=== PATIENT | female | born 1970 | race Caucasian/White ===

== ENCOUNTER 2016-10-14 18:05 | Inpatient (IN) | payer BC, MEDICARE ==
--- NOTE | ~2016-10-14 | HP ---
History And Physical [place] [id number] [facility] [place]. [address] NAME: JEANA LARIOS : 66 STATUS : ADM IN [facility]#: [id number] AGE: 45 ADM/REG DATE : 10/14/16 MR#: [id number] REPORT SERV DATE: 10/15/16 DICTATED BY: LUPIS METZ DATE: 10/15/16 REPORT STATUS : Draft TRANSCRIBED BY: MODCammy DATE: 10/15/16 DATE OF ADMISSION: 10/14/2016 ADDENDUM: The patient with some mild worsening tongue thickening. Dr. Kelly of Critical Care called and consulted, came to evaluate the patient, and will transfer the patient over to ICU. At this time, the patient has no stridor. Her vital signs are stable and saturating 91% to 94% on room air. Still with some dysphonia. However, will be transferred over to ICU for closer monitoring. Also, the patient's instructions per her immunologists, Dr. Steven and Dr. Castillo, are reviewed with Dr. Kelly and instructions also on chart, and is aware. The patient currently now on Critical Care Service. [facility]/SEANL Lupis Metz M.D. / [id number] CC: Charles Isaacs MD
--- NOTE | ~2016-10-14 | OP ---
Record Of Operation [facility] [address] [place]. [address] NAME: JEANA LARIOS : 66 STATUS : ADM IN [facility]#: [id number] AGE: 45 ADM/REG DATE : 10/14/16 MR#: [id number] REPORT SERV DATE: 10/15/16 DICTATED BY: JEET KELLY DATE: 10/15/16 REPORT STATUS : Draft TRANSCRIBED BY: DAVIDE DATE: 10/15/16 DATE OF PROCEDURE: 10/15/2016 TITLE OF PROCEDURE: Endotracheal intubation. INDICATION: Angioedema and respiratory distress. PROCEDURE NOTE: Time-out was completed verifying correct patient and procedure. The patient was placed in a flat position. Sedation was obtained using 30 mg of etomidate. The patient was easily ventilated using an Ambu bag. The GlideScope was used and inserted into the oropharynx at which time there was a grade 2 view of the vocal cords. A 7.5-Ugandan endotracheal tube was inserted and visualized going through the vocal cords. The stylet was removed. Colorimetric change was visualized on the CO2 meter. Breath sounds were heard in both lung serrano bilaterally. Endotracheal tube was placed at 23 cm, measured at the teeth. I was present for the entire procedure. Chest x-ray was ordered to assess for pneumothorax and to verify endotracheal tube placement. The patient tolerated the procedure well and there were no complications. [facility]IDE Jeet Kelly MD / [id number] CC: Charles Isaacs MD
--- NOTE | ~2016-10-14 | DS ---
Discharge Summary [facility] [address] [place]. [address] NAME: JEANA LARIOS : 66 STATUS : ADM IN [facility]#: [id number] AGE: 45 ADM/REG DATE : 10/14/16 MR#: [id number] REPORT SERV DATE: 10/22/16 DICTATED BY: Teresa SERRANO DATE: 10/22/16 REPORT STATUS : Draft TRANSCRIBED BY: DAVIDE DATE: 10/22/16 ADMISSION DATE: 10/14/2016 DISCHARGE DATE: 10/22/2016 DIAGNOSES AT DISCHARGE: Hereditary angioneurotic edema; history of pulmonary embolism, on Coumadin; type 2 diabetes; hypothyroidism; chronic pain syndrome. CONSULTS: None. PROCEDURES: None. For details of earlier hospital stay, please see previous interim summary dictated by Critical Care as well as the more recent interim summary dictated by Dr. Isaacs. HOSPITAL COURSE: On 10/20/2016, the patient continues to remain stable. She is on room air and comfortable. Able to ambulate around the room without difficulty and tolerating a normal diet. The patient at home has two acute therapies for her angioedema that include Firazyr and Kalbitor that she takes on a p.r.n. basis. She remains with somewhat of a weak voice, but otherwise is doing well. It is felt at this time that the patient will be better served going home with her family and closer to her physicians in [place] and have managed her issues for a number of years. The patient has adequate supplies of both medications as well as her home medications. We will give her one dose of Firazyr 30 subcu prior to discharge to ensure safe travel. Otherwise, she will continue her current medications and follow up with her primary care provider in approximately one week. The patient will be given a prescription for Percocet 10 one q.6 hours p.r.n., #20. Further recommendations pending outpatient followup with her primary care provider. Of note, her INR was 2.9 and had been therapeutic for multiple days prior to discharge. Her CBC and electrolytes are normal. [facility]/DAVIDE Teresa Serrano M.D. / [id number] CC: Charles Isaacs MD
--- NOTE | ~2016-10-14 | HP ---
History And Physical [place] [id number] [place]. [address] NAME: JEANA LARIOS : 66 STATUS : ADM IN [facility]#: [id number] AGE: 45 ADM/REG DATE : 10/14/16 MR#: [id number] REPORT SERV DATE: 10/15/16 DICTATED BY: LUPIS METZ DATE: 10/14/16 REPORT STATUS : Draft TRANSCRIBED BY: DAVIDE DATE: 10/14/16 DATE OF ADMISSION: 10/14/2016 CHIEF COMPLAINT: Hand and throat swelling. HISTORY OF PRESENT ILLNESS: This is a 45 years old female with past medical history of hereditary angioedema type 3 and also history of PEs, on chronic anticoagulation. Her immunologists are Dr. Steven in [place], phone number is [phone] Castillo from [facility] at #[phone]. The patient states that she has intermittent exacerbations and around 1 p.m. today, began having some bilateral hand swelling. She took a dose of her Firazyr with some improvement and the patient was about to get on the road to travel back to [place], when she began to have abdominal swelling with discomfort and throat swelling with some dysphonia. Therefore, she presented to the emergency department, was seen by Dr. Bob Turner, ER physician. The patient also has paperwork from Dr. Steven with instructions concerning her care for any acute angioedema exacerbations. The patient was given a dose of Kalbitor and her dysphonia has improved, her tongue swelling has improved, but not quite at her baseline yet. Also, swelling of her hands has resolved. Still has some abdominal swelling. The patient states that she is improving after the Kalbitor. Denies any subjective fever or chills. Currently, no shortness of breath. Also, the patient was given IV Benadryl. She did get a dose of IV Solu-Medrol in the ER, which will be discontinued as well as some Pepcid. Also ER physician provided some IV morphine for her abdominal swelling and discomfort from the angioedema, and the hospitalist was called to admit the patient to the hospital. REVIEW OF SYSTEMS: Please refer to above. PAST MEDICAL HISTORY: Hereditary angioedema type 3; PE, on chronic anticoagulation; type 2 diabetes; hypothyroidism; hypertension; history of tachycardia. PAST SURGICAL HISTORY: Cholecystectomy, ex lap, appendectomy, ORIF left radius, and rhinoplasty per chart. FAMILY HISTORY: Hyperlipidemia, CVA, hypertension, and Crohn's. SOCIAL HISTORY: No tobacco, alcohol, or illicit drugs. Lives with family including and daughter. Also, lives in [place]. ALLERGIES: SULFA, PHENERGAN, IMITREX, KEFLEX. DENIES ANY FOOD ALLERGIES. HOME MEDICATIONS: Tylenol p.r.n., albuterol MDI two puffs p.o. p.r.n., Abilify two puffs p.o. daily, artificial tears p.r.n., ascorbic acid daily, B complex vitamin daily, biotin q.h.s., vitamin D with calcium two tablets p.o. q.h.s., Zyrtec 10 mg p.o. b.i.d., Klonopin 0.5 mg p.o. t.i.d. p.r.n., Bentyl 20 mg p.o. four times a day p.r.n., Benadryl 50 mg p.o. q.6 hours p.r.n., Lexapro 20 mg p.o. daily, Flonase daily p.r.n., folic acid 1 mg p.o. q. evening, Firazyr 30 mg subcu q.6 hours p.r.n. angioedema with a maximum of 90 mg, krill oil History And Physical [address] [address] NAME: JEANA LARIOS : 66 STATUS : ADM IN [facility]#: [id number] AGE: 45 ADM/REG DATE : 10/14/16 MR#: [id number] REPORT SERV DATE: 10/15/16 DICTATED BY: LUPIS METZ DATE: 10/14/16 REPORT STATUS : Draft TRANSCRIBED BY: DAVIDE DATE: 10/14/16 q.h.s., levothyroxine 75 mcg p.o. q.a.m., melatonin 1.5 mg p.o. q.h.s. p.r.n., metoprolol succinate XL 25 mg p.o. q.h.s., vitamin B6 at 100 mg p.o. daily, Zantac 150 mg p.o. b.i.d., Florastor 250 mg p.o. b.i.d., Onglyza 5 mg p.o. daily, senna two tabs p.o. b.i.d. p.r.n., Restoril 30 mg p.o. q.h.s. p.r.n., Topamax 200 mg p.o. b.i.d., tramadol ER 300 mg p.o. daily, Kalbitor 30 mg subcu p.r.n., milk thistle, potassium over the counter, and warfarin 5 mg p.o. q. evening. PHYSICAL EXAMINATION: VITAL SIGNS: Temp of 98.2, blood pressure 125/82 with a pulse of 106, respirations of 16, saturating 99% on room air. GENERAL: The patient is alert and oriented x3. HEENT: Pupils equal, round, and reactive to light. Extraocular muscles are intact. Moist mucous membranes. The patient can only open her mouth approximately 1-1/2 to 2 inches; however, able to see uvula. Has possible mild tongue swelling at this time. CARDIOVASCULAR: S1, S2. Regular rate and rhythm. No murmurs, rubs, or gallops. RESPIRATORY: Clear to auscultation bilaterally. No wheezes or crackles. No signs of tachypnea. No signs of stridor. ABDOMEN: Positive bowel sounds. Soft with tenderness to palpation more so generalized with mild edema. EXTREMITIES: 2+ pulse bilaterally. No appreciated hand swelling. No lower extremity swelling. NEURO: Cranial nerves 2 through 12 grossly intact. Moves all four extremities. No neuro focal deficits, but with positive dysphonia. LABORATORY DATA: Sodium 142, potassium 3.3, chloride of 108, bicarb of 24, BUN of 13, creatinine of 1.05 with a glucose of 165, albumin of 3.4, T bilirubin of 1, alkaline phosphatase of 67, ALT of 44, AST of 23, white count of 9.1 with a hemoglobin of 13.3, platelet count of 230. INR 2.5. ASSESSMENT AND PLAN: 1. Hereditary angioedema. 2. History of pulmonary embolus. 3. Type 2 diabetes. 4. Hypothyroidism. 5. The patient will be admitted to [facility]. She will get another dose of Kalbitor in the morning. However, we will continue with her IV Benadryl scheduled as well as IV Pepcid. Also, electrolytes to be replaced. The patient to have close monitoring. Also, we will provide Xopenex for bronchodilator. 6. The patient will be admitted to Dr. Isaacs, who will attend to this patient's care. [facility]/DAVIDE Lupis Metz M.D. History And Physical [address] [address] NAME: JEANA LARIOS : 66 STATUS : ADM IN [facility]#: [id number] AGE: 45 ADM/REG DATE : 10/14/16 MR#: [id number] REPORT SERV DATE: 10/15/16 DICTATED BY: LUPIS METZ DATE: 10/14/16 REPORT STATUS : Draft TRANSCRIBED BY: DAVIDE DATE: 10/14/16 / [id number] CC: Charles Isaacs MD
--- NOTE | ~2016-10-14 | IDS ---
Interim Discharge Summary [facility] [address] [place]. [address] NAME: JEANA LARIOS : 66 STATUS : ADM IN [facility]#: [id number] AGE: 45 ADM/REG DATE : 10/14/16 MR#: [id number] REPORT SERV DATE: 10/20/16 DICTATED BY: CHARLES BOWER DATE: 10/20/16 REPORT STATUS : Draft TRANSCRIBED BY: DAVIDE DATE: 10/20/16 ADMISSION DATE: 10/14/2016 DISCHARGE DATE: This interim discharge covers admission from [facility] from 10/19/2016 to 10/20/2016. The patient was previously in MICU on 10/14/2016. PROCEDURES DONE: 1. 10/14/2016, operative report by Dr. Kelly. Procedure done is endotracheal intubation. Indications were angioedema and respiratory distress. 2. 10/19/2016, chest x-ray: Significant improvement of aeration of the right perihilar region and at the lung bases with only mild residual right perihilar atelectasis/consolidation. REASON FOR ADMISSION: Hand and throat swelling. HISTORY OF HOSPITAL STAY: A 45-year-old white female with past medical history of hereditary angioedema type 3; history of PE, on Coumadin; diabetes type 2; hypothyroidism; hypertension, presenting with hand and throat swelling. The patient was admitted initially for hand and throat swelling secondary to her hereditary angioedema. Unfortunately, the patient required intubation due to respiratory distress. The patient was in MICU until the patient was released to IMCU on 10/19/2016. During the stay in IMCU, the patient was able to be extubated without any complications. In addition, the patient is able to maintain her O2 saturation. However, the patient had intermittent signs of closing of her pharynx which requires giving the medication of Kalbitor which responded to the patient's angioedema. In the meantime, the patient is being kept in IMCU for stable angioedema until the patient is able to maintain good O2 saturation with decreasing O2 via nasal cannula. DIAGNOSES ON DISCHARGE: 1. Hand and throat swelling secondary to hereditary angioedema. 2. Hereditary angioedema. Continue monitoring the patient with Kalbitor p.r.n. if angioedema progresses. 3. History of pulmonary embolism, on Coumadin. Continue Coumadin. Pharmacy is adjusting Coumadin dose for therapeutic INR. 4. Diabetes type 2. The patient's glucose is stable. Continue level 2 sliding scale. 5. Hypothyroid. Continue Synthroid. 6. Chronic pain. I explained to the patient the restrictions required for her pain medications. The patient has been asking to decrease the frequency of her pain medications, however, I explained to the patient that we will put restrictions on the pain medication if her heart rate is less than 70 or greater than 100 and/or systolic blood pressure less than 110. The patient will not get any medication due to maintaining her O2 saturation. [facility]/DAVIDE Interim Discharge Summary [place] [id number] [place]. [address] NAME: JEANA LARIOS : 66 STATUS : ADM IN [facility]#: [id number] AGE: 45 ADM/REG DATE : 10/14/16 MR#: [id number] REPORT SERV DATE: 10/20/16 DICTATED BY: CHARLES BOWER DATE: 10/20/16 REPORT STATUS : Draft TRANSCRIBED BY: DAVIDE DATE: 10/20/16 Charles Bower MD / [id number] CC: Charles Bower MD
[2016-10-14 17:31] LABS: BASOPHILS 0.5 %; BASOPHILS ABSOLUTE 0.05 10/3/uL (0.0-0.16); EOSINOPHILS 2.7 %; EOSINOPHILS ABSOLUTE 0.25 10/3/uL (0.0-0.53); HEMATOCRIT 39.2 % (36.0-48.0); HEMOGLOBIN 13.3 g/dL (12.0-16.0); IMMATURE GRANULOCYTES 0.3 %; IMMATURE GRANULOCYTES ABSOLUTE 0.03 10/3/uL (0.0-0.11); LYMPHOCYTES 59.2 %; LYMPHOCYTES ABSOLUTE 5.39 10/3/uL (0.67-4.30); MANUAL DIFF NO %; MEAN CORPUS HGB CONC 33.9 g/dL (32.0-36.0); MEAN CORPUSCULAR HEMOGLOB 27.6 pg (26.0-34.0); MEAN CORPUSCULAR VOLUME 81.3 fL (80-100); MEAN PLATELET VOLUME 9.3 fL (9.2-13.0); MONOCYTES 6.8 %; MONOCYTES ABSOLUTE 0.62 10/3/uL (0.21-1.20); NEUTROPHILS 30.5 %; NEUTROPHILS ABSOLUTE 2.77 10/3/uL (2.02-8.40); PLATELET COUNT 230 10/3/uL (150-400); RBC DISTRIBUTION WIDTH 18.1 % (12.0-16.0); RED CELL COUNT 4.82 10/6/uL (4.0-5.6); WHITE BLOOD CELLS 9.1 10/3/uL (4.5-10.5)
[2016-10-14 17:42] LABS: INTERNATIONAL NORMAL RATI 2.5 UNITS (-); PARTIAL THROMBO TIME 65.3 SEC (22.5-37.2)
[2016-10-14 17:43] LABS: PROTIME (NOT ORD) 26.9 SEC (12.0-14.5)
[2016-10-14 17:45] LABS: ALBUMIN 3.4 G/DL (3.5-5.0); BUN (BLOOD UREA NITROGEN) 13 MG/DL (6-23); CALCIUM, SERUM 8.4 MG/DL (8.5-10.4); CHLORIDE, SERUM 108 MMOL/L (96-112); CO2 (CARBON DIOXIDE) 24 MMOL/L (24-34); CREATININE 1.05 MG/DL (0.55-1.02); GFR AFRICAN AMERICAN 73 ML/MIN (>=60); GFR NON AFRICAN AMERICAN 63 ML/MIN (>=60); GLOBULIN 3.5 G/DL (2.5-4.1); POTASSIUM, SERUM 3.3 MMOL/L (3.5-5.3); SGOT(AST) 23 U/L (5-40); SGPT(ALT) 44 U/L (5-65); SODIUM, SERUM 142 MMOL/L (135-148); TOTAL BILIRUBIN 0.3 MG/DL (0-1.2); TOTAL PROTEIN 6.9 G/DL (6.0-8.5)
[2016-10-14 17:46] LABS: ALKALINE PHOSPHATASE 67 U/L (45-117); GLUCOSE, SERUM 164 MG/DL (60-99)
[2016-10-14 17:55] LABS: ANISOCYTOSIS 1+ (5-10/OIF) (0-5/OIF); BASOPHILS 4 %; BASOPHILS ABSOLUTE (CALC) 0.36 10/3/uL (0.0-0.16); EOSINOPHILS 1 %; EOSINOPHILS ABSOLUTE (CALC) 0.09 10/3/uL (0.0-0.53); ER DIFF TAT 0 Hrs 30 Mins; LYMPHOCYTES 52 %; LYMPHOCYTES ABSOLUTE (CALC) 4.73 10/3/uL (0.67-4.30); MONOCYTES 4 %; MONOCYTES ABSOLUTE (CALC) 0.36 10/3/uL (0.21-1.20); NEUTROPHILS ABSOLUTE (CALC) 3.55 10/3/uL (2.02-8.40); PLATELET ESTIMATE ADQ (ADEQUATE); SEGMENTED NEUTROPHIL (0) 39 %; TOTAL NUCLEATED CELLS 100
[~2016-10-14 18:05] MED LIST: ABILIFY2 PO; BELSOMRA 10 MG PO; BEN25 PO; BENTYL20 PO; BIOTIN10 MG PO; C5 PO; CALTRA600D PO; COUMADIN4 MG PO; ENDOCET1 TAB PO; FIRAZYR SC; FIRAZYR30 MG/3 ML SC; FLONASE NAS; FLORASTOR250 MG PO; FOLIC PO; KLONO5 PO; KRILLOIL PO; LEVOTHYROXIN75 MCG PO; LEXAPRO20 PO; MELATONIN1 M1 PO; MILK THISTLE PO; ONGLYZA5 MG PO; PCET PO; POTASSIUM OTC PO; PROVHFA PO; RESTORIL30 MG PO; SENTAB PO; STOOL SOFTNER PO; SYN075 PO; SYSTANE OPH; T PO; TEARS PURE OPH; TOPAMAX200 MG PO; TOPXL25 PO; ULTRAM ER300 MG PO; ULTRAM50 PO; VITAMIN B PO; VITAMIN B-625 MG PO; VITAMIN C100 MG PO; XARELTO20 MG PO; ZANTAC 150 PO; ZYRTEC ALLGY10 MG PO; [UNRECOGNIZED DRUG - OTHER] PO; [UNRECOGNIZED DRUG - OTHER] SC; [UNRECOGNIZED DRUG - OTHER] SC
[2016-10-15 04:46] LABS: INTERNATIONAL NORMAL RATI 2.4 UNITS (-)
[2016-10-15 14:36] LABS: ALLENS TEST Pos; BE (BASE EXCESS) -5.8 MEQ/L (0 +/- 2.5); CARBOXYHEMOGLOBIN 0.3 % (0-3); HCO3 (ACTUAL BICARBONATE) 19.3 MEQ/L (23-27); HEMOBLOGIN CONTENT 13.5 G/DL (12-16); INSTRUMENT SERIAL # 8083; METHEMOGLOBIN 0.3 % (0-3); MODE CMV; O2 CONTENT 19.1 VOL% (18-24); OPERATOR ID 14382; PCO2 (CO2 TENSION) 37 MMHG (35-45); PO2 (O2 TENSION) 185 MMHG (79-93); SAMPLE Arterial; TIDAL VOLUME 500 ML; pH 7.34 (7.37-7.43)
[2016-10-16 04:27] LABS: BASOPHILS 0.3 %; BASOPHILS ABSOLUTE 0.03 10/3/uL (0.0-0.16); EOSINOPHILS 1.5 %; EOSINOPHILS ABSOLUTE 0.13 10/3/uL (0.0-0.53); HEMOGLOBIN 11.2 g/dL (12.0-16.0); IMMATURE GRANULOCYTES 0.3 %; IMMATURE GRANULOCYTES ABSOLUTE 0.03 10/3/uL (0.0-0.11); LYMPHOCYTES ABSOLUTE 3.13 10/3/uL (0.67-4.30); MEAN CORPUSCULAR HEMOGLOB 27.1 pg (26.0-34.0); MEAN PLATELET VOLUME 9.4 fL (9.2-13.0); MONOCYTES 7.2 %; MONOCYTES ABSOLUTE 0.64 10/3/uL (0.21-1.20); NEUTROPHILS 55.7 %; NEUTROPHILS ABSOLUTE 4.98 10/3/uL (2.02-8.40); PLATELET COUNT 169 10/3/uL (150-400); RBC DISTRIBUTION WIDTH 19.3 % (12.0-16.0); RED CELL COUNT 4.13 10/6/uL (4.0-5.6); WHITE BLOOD CELLS 8.9 10/3/uL (4.5-10.5)
[2016-10-16 04:32] LABS: INTERNATIONAL NORMAL RATI 2.4 UNITS (-); PROTIME (NOT ORD) 25.5 SEC (12.0-14.5)
[2016-10-16 04:38] LABS: BUN (BLOOD UREA NITROGEN) 13 MG/DL (6-23); CALCIUM, SERUM 7.6 MG/DL (8.5-10.4); CHLORIDE, SERUM 115 MMOL/L (96-112); CO2 (CARBON DIOXIDE) 21 MMOL/L (24-34); GFR AFRICAN AMERICAN 88 ML/MIN (>=60); GFR NON AFRICAN AMERICAN 76 ML/MIN (>=60); GLUCOSE, SERUM 192 MG/DL (60-99); POTASSIUM, SERUM 3.5 MMOL/L (3.5-5.3); SODIUM, SERUM 145 MMOL/L (135-148)
[2016-10-16 04:40] LABS: MEAN CORPUSCULAR VOLUME 84.7 fL (80-100)
[2016-10-16 04:41] LABS: MANUAL DIFF NO %
[2016-10-17 04:59] LABS: INTERNATIONAL NORMAL RATI 2.2 UNITS (-); PROTIME (NOT ORD) 24.5 SEC (12.0-14.5)
[2016-10-17 08:42] LABS: BASOPHILS 0.2 %; BASOPHILS ABSOLUTE 0.02 10/3/uL (0.0-0.16); EOSINOPHILS 1.5 %; EOSINOPHILS ABSOLUTE 0.16 10/3/uL (0.0-0.53); HEMATOCRIT 38.6 % (36.0-48.0); HEMOGLOBIN 12.5 g/dL (12.0-16.0); IMMATURE GRANULOCYTES 0.2 %; IMMATURE GRANULOCYTES ABSOLUTE 0.02 10/3/uL (0.0-0.11); LYMPHOCYTES 27.5 %; LYMPHOCYTES ABSOLUTE 2.95 10/3/uL (0.67-4.30); MANUAL DIFF NO %; MEAN CORPUS HGB CONC 32.4 g/dL (32.0-36.0); MEAN CORPUSCULAR HEMOGLOB 27.4 pg (26.0-34.0); MEAN CORPUSCULAR VOLUME 84.5 fL (80-100); MEAN PLATELET VOLUME 9.3 fL (9.2-13.0); MONOCYTES 5.7 %; MONOCYTES ABSOLUTE 0.61 10/3/uL (0.21-1.20); NEUTROPHILS 64.9 %; NEUTROPHILS ABSOLUTE 6.95 10/3/uL (2.02-8.40); PLATELET COUNT 149 10/3/uL (150-400); RBC DISTRIBUTION WIDTH 18.9 % (12.0-16.0); RED CELL COUNT 4.57 10/6/uL (4.0-5.6); WHITE BLOOD CELLS 10.7 10/3/uL (4.5-10.5)
[2016-10-17 08:55] LABS: BUN (BLOOD UREA NITROGEN) 9 MG/DL (6-23); CALCIUM, SERUM 8.3 MG/DL (8.5-10.4); CHLORIDE, SERUM 107 MMOL/L (96-112); CO2 (CARBON DIOXIDE) 21 MMOL/L (24-34); CREATININE 0.85 MG/DL (0.55-1.02); GFR AFRICAN AMERICAN 95 ML/MIN (>=60); GFR NON AFRICAN AMERICAN 82 ML/MIN (>=60); GLUCOSE, SERUM 215 MG/DL (60-99); POTASSIUM, SERUM 3.5 MMOL/L (3.5-5.3); SODIUM, SERUM 141 MMOL/L (135-148)
[2016-10-17 10:18] LABS: ALLENS TEST Neg; BE (BASE EXCESS) -5.1 MEQ/L (0 +/- 2.5); CARBOXYHEMOGLOBIN 0.5 % (0-3); DEVICE NC; HCO3 (ACTUAL BICARBONATE) 19.3 MEQ/L (23-27); HEMOBLOGIN CONTENT 12.9 G/DL (12-16); INSTRUMENT SERIAL # 8083; METHEMOGLOBIN 0.2 % (0-3); O2 CONTENT 17.8 VOL% (18-24); OPERATOR ID 35798; PCO2 (CO2 TENSION) 34 MMHG (35-45); PO2 (O2 TENSION) 100 MMHG (79-93); SAMPLE Arterial; pH 7.37 (7.37-7.43)
[2016-10-17 22:20] LABS: ASCORBIC ACID (UR NOT ORDER) NEG (NEG); BILIRUBIN, URINE NEGATIVE (NEG); KETONE, URINE NEGATIVE (NEG); LEUKOCYTE ESTERASE(NOT OR NEG (NEG); WBC (NOT ORDERED) (RFLEX) 4 (0-5)
[2016-10-18 05:56] LABS: INTERNATIONAL NORMAL RATI 1.8 UNITS (-); PROTIME (NOT ORD) 20.9 SEC (12.0-14.5)
[2016-10-18 06:21] LABS: BASOPHILS 0.2 %; BASOPHILS ABSOLUTE 0.02 10/3/uL (0.0-0.16); EOSINOPHILS 2.2 %; EOSINOPHILS ABSOLUTE 0.27 10/3/uL (0.0-0.53); HEMATOCRIT 41.9 % (36.0-48.0); HEMOGLOBIN 13.8 g/dL (12.0-16.0); IMMATURE GRANULOCYTES 0.2 %; IMMATURE GRANULOCYTES ABSOLUTE 0.03 10/3/uL (0.0-0.11); LYMPHOCYTES 13.1 %; LYMPHOCYTES ABSOLUTE 1.61 10/3/uL (0.67-4.30); MEAN CORPUS HGB CONC 32.9 g/dL (32.0-36.0); MEAN CORPUSCULAR HEMOGLOB 27.5 pg (26.0-34.0); MEAN CORPUSCULAR VOLUME 83.6 fL (80-100); MEAN PLATELET VOLUME 9.3 fL (9.2-13.0); MONOCYTES 5.5 %; MONOCYTES ABSOLUTE 0.68 10/3/uL (0.21-1.20); NEUTROPHILS 78.8 %; PLATELET COUNT 179 10/3/uL (150-400); RBC DISTRIBUTION WIDTH 18.1 % (12.0-16.0); RED CELL COUNT 5.01 10/6/uL (4.0-5.6); WHITE BLOOD CELLS 12.3 10/3/uL (4.5-10.5)
[2016-10-18 06:39] LABS: BUN (BLOOD UREA NITROGEN) 6 MG/DL (6-23); CALCIUM, SERUM 8.8 MG/DL (8.5-10.4); CHLORIDE, SERUM 109 MMOL/L (96-112); CO2 (CARBON DIOXIDE) 18 MMOL/L (24-34); CREATININE 0.68 MG/DL (0.55-1.02); GFR AFRICAN AMERICAN 121 ML/MIN (>=60); GFR NON AFRICAN AMERICAN 104 ML/MIN (>=60); GLUCOSE, SERUM 206 MG/DL (60-99); POTASSIUM, SERUM 3.7 MMOL/L (3.5-5.3); SODIUM, SERUM 141 MMOL/L (135-148)
[2016-10-18 06:43] LABS: MANUAL DIFF NO %
[2016-10-19 04:37] LABS: HEMOGLOBIN 12.4 g/dL (12.0-16.0); MEAN CORPUSCULAR HEMOGLOB 28.1 pg (26.0-34.0); MEAN CORPUSCULAR VOLUME 82.8 fL (80-100); MEAN PLATELET VOLUME 9.4 fL (9.2-13.0); PLATELET COUNT 166 10/3/uL (150-400); RBC DISTRIBUTION WIDTH 18.2 % (12.0-16.0); RED CELL COUNT 4.41 10/6/uL (4.0-5.6); WHITE BLOOD CELLS 10.5 10/3/uL (4.5-10.5)
[2016-10-19 04:38] LABS: HEMATOCRIT 36.5 % (36.0-48.0)
[2016-10-19 04:39] LABS: MANUAL DIFF YES %
[2016-10-19 04:45] LABS: INTERNATIONAL NORMAL RATI 2.4 UNITS (-)
[2016-10-19 04:46] LABS: PROTIME (NOT ORD) 25.9 SEC (12.0-14.5)
[2016-10-19 04:50] LABS: BUN (BLOOD UREA NITROGEN) 9 MG/DL (6-23); CALCIUM, SERUM 8.9 MG/DL (8.5-10.4); CHLORIDE, SERUM 107 MMOL/L (96-112); CO2 (CARBON DIOXIDE) 18 MMOL/L (24-34); CREATININE 0.86 MG/DL (0.55-1.02); GFR AFRICAN AMERICAN 93 ML/MIN (>=60); GFR NON AFRICAN AMERICAN 80 ML/MIN (>=60); SODIUM, SERUM 139 MMOL/L (135-148)
[2016-10-19 04:56] LABS: GLUCOSE, SERUM 156 MG/DL (60-99)
[2016-10-19 05:33] LABS: ANISOCYTOSIS 1+ (5-10/OIF) (0-5/OIF); BAND NEUTROPHILS 4 %; EOSINOPHILS 2 %; EOSINOPHILS ABSOLUTE (CALC) 0.21 10/3/uL (0.0-0.53); LYMPHOCYTES 15 %; LYMPHOCYTES ABSOLUTE (CALC) 1.58 10/3/uL (0.67-4.30); MONOCYTES 4 %; MONOCYTES ABSOLUTE (CALC) 0.42 10/3/uL (0.21-1.20); RBC MORPHOLOGY ABN (NORMAL); SEGMENTED NEUTROPHIL (0) 75 %; TOTAL NUCLEATED CELLS 100
[2016-10-19 09:14] LABS: POTASSIUM, SERUM 2.9 MMOL/L (3.5-5.3)
[2016-10-20 04:33] LABS: HEMATOCRIT 33.8 % (36.0-48.0); MEAN CORPUS HGB CONC 32.5 g/dL (32.0-36.0); MEAN CORPUSCULAR VOLUME 82.8 fL (80-100); MEAN PLATELET VOLUME 9.7 fL (9.2-13.0); PLATELET COUNT 197 10/3/uL (150-400); RBC DISTRIBUTION WIDTH 18.7 % (12.0-16.0); RED CELL COUNT 4.08 10/6/uL (4.0-5.6); WHITE BLOOD CELLS 9.2 10/3/uL (4.5-10.5)
[2016-10-20 04:35] LABS: MANUAL DIFF YES %
[2016-10-20 04:39] LABS: INTERNATIONAL NORMAL RATI 2.8 UNITS (-); PROTIME (NOT ORD) 28.9 SEC (12.0-14.5)
[2016-10-20 04:54] LABS: BUN (BLOOD UREA NITROGEN) 10 MG/DL (6-23); CALCIUM, SERUM 8.6 MG/DL (8.5-10.4); CHLORIDE, SERUM 111 MMOL/L (96-112); CO2 (CARBON DIOXIDE) 20 MMOL/L (24-34); CREATININE 0.66 MG/DL (0.55-1.02); GFR AFRICAN AMERICAN 122 ML/MIN (>=60); GFR NON AFRICAN AMERICAN 105 ML/MIN (>=60); GLUCOSE, SERUM 148 MG/DL (60-99); POTASSIUM, SERUM 3.5 MMOL/L (3.5-5.3); SGOT(AST) 31 U/L (5-40); SGPT(ALT) 44 U/L (5-65); SODIUM, SERUM 142 MMOL/L (135-148); TOTAL BILIRUBIN 0.2 MG/DL (0-1.2); TOTAL PROTEIN 7.1 G/DL (6.0-8.5)
[2016-10-20 04:56] LABS: A/G RATIO 0.6 (0.7-1.9); ALBUMIN 2.7 G/DL (3.5-5.0); ALKALINE PHOSPHATASE 92 U/L (45-117); GLOBULIN 4.4 G/DL (2.5-4.1); PHOSPHORUS, SERUM 1.7 MG/DL (2.5-4.5)
[2016-10-20 05:09] LABS: BAND NEUTROPHILS 2 %; EOSINOPHILS 3 %; EOSINOPHILS ABSOLUTE (CALC) 0.28 10/3/uL (0.0-0.53); LYMPHOCYTES 23 %; LYMPHOCYTES ABSOLUTE (CALC) 2.12 10/3/uL (0.67-4.30); MONOCYTES 15 %; MONOCYTES ABSOLUTE (CALC) 1.38 10/3/uL (0.21-1.20); NEUTROPHILS ABSOLUTE (CALC) 5.43 10/3/uL (2.02-8.40); PLATELET ESTIMATE ADQ (ADEQUATE); RBC MORPHOLOGY ABN (NORMAL); SEGMENTED NEUTROPHIL (0) 57 %; TOTAL NUCLEATED CELLS 100
[2016-10-21 04:38] LABS: HEMATOCRIT 34.5 % (36.0-48.0); HEMOGLOBIN 11.3 g/dL (12.0-16.0); MEAN CORPUS HGB CONC 32.8 g/dL (32.0-36.0); MEAN CORPUSCULAR HEMOGLOB 27.2 pg (26.0-34.0); MEAN CORPUSCULAR VOLUME 82.9 fL (80-100); MEAN PLATELET VOLUME 9.3 fL (9.2-13.0); PLATELET COUNT 197 10/3/uL (150-400); RED CELL COUNT 4.16 10/6/uL (4.0-5.6); WHITE BLOOD CELLS 6.9 10/3/uL (4.5-10.5)
[2016-10-21 04:43] LABS: MANUAL DIFF YES %
[2016-10-21 04:52] LABS: ALKALINE PHOSPHATASE 89 U/L (45-117); BUN (BLOOD UREA NITROGEN) 10 MG/DL (6-23); CALCIUM, SERUM 8.9 MG/DL (8.5-10.4); CHLORIDE, SERUM 108 MMOL/L (96-112); CO2 (CARBON DIOXIDE) 20 MMOL/L (24-34); CREATININE 0.63 MG/DL (0.55-1.02); GFR AFRICAN AMERICAN 124 ML/MIN (>=60); GFR NON AFRICAN AMERICAN 107 ML/MIN (>=60); GLUCOSE, SERUM 171 MG/DL (60-99); POTASSIUM, SERUM 3.1 MMOL/L (3.5-5.3); SGOT(AST) 34 U/L (5-40); SGPT(ALT) 55 U/L (5-65); SODIUM, SERUM 142 MMOL/L (135-148); TOTAL BILIRUBIN 0.3 MG/DL (0-1.2)
[2016-10-21 05:23] LABS: A/G RATIO 0.7 (0.7-1.9); ALBUMIN 2.8 G/DL (3.5-5.0); GLOBULIN 4.2 G/DL (2.5-4.1)
[2016-10-21 05:35] LABS: INTERNATIONAL NORMAL RATI 2.9 UNITS (-); PROTIME (NOT ORD) 29.9 SEC (12.0-14.5)
[2016-10-21 06:20] LABS: ANISOCYTOSIS 1+ (5-10/OIF) (0-5/OIF); BAND NEUTROPHILS 8 %; EOSINOPHILS 2 %; EOSINOPHILS ABSOLUTE (CALC) 0.14 10/3/uL (0.0-0.53); LYMPHOCYTES 35 %; LYMPHOCYTES ABSOLUTE (CALC) 2.42 10/3/uL (0.67-4.30); MONOCYTES 3 %; MONOCYTES ABSOLUTE (CALC) 0.21 10/3/uL (0.21-1.20); NEUTROPHILS ABSOLUTE (CALC) 4.14 10/3/uL (2.02-8.40); PLATELET ESTIMATE ADQ (ADEQUATE); RBC MORPHOLOGY ABN (NORMAL); SEGMENTED NEUTROPHIL (0) 52 %; TOTAL NUCLEATED CELLS 100
[2016-10-21 10:13] LABS: BUN (BLOOD UREA NITROGEN) 9 MG/DL (6-23); CHLORIDE, SERUM 109 MMOL/L (96-112); CO2 (CARBON DIOXIDE) 19 MMOL/L (24-34); CREATININE 0.67 MG/DL (0.55-1.02); GFR AFRICAN AMERICAN 121 ML/MIN (>=60); GFR NON AFRICAN AMERICAN 105 ML/MIN (>=60); GLUCOSE, SERUM 205 MG/DL (60-99); PHOSPHORUS, SERUM 2.1 MG/DL (2.5-4.5); POTASSIUM, SERUM 3.5 MMOL/L (3.5-5.3); SODIUM, SERUM 141 MMOL/L (135-148)
[2016-10-22 04:49] LABS: HEMATOCRIT 34.9 % (36.0-48.0); HEMOGLOBIN 11.4 g/dL (12.0-16.0); MEAN CORPUS HGB CONC 32.7 g/dL (32.0-36.0); MEAN CORPUSCULAR HEMOGLOB 27.6 pg (26.0-34.0); MEAN CORPUSCULAR VOLUME 84.5 fL (80-100); MEAN PLATELET VOLUME 9.1 fL (9.2-13.0); PLATELET COUNT 254 10/3/uL (150-400); RBC DISTRIBUTION WIDTH 19.1 % (12.0-16.0); RED CELL COUNT 4.13 10/6/uL (4.0-5.6); WHITE BLOOD CELLS 7.7 10/3/uL (4.5-10.5)
[2016-10-22 04:50] LABS: MANUAL DIFF YES %
[2016-10-22 04:55] LABS: INTERNATIONAL NORMAL RATI 2.9 UNITS (-); PROTIME (NOT ORD) 30.2 SEC (12.0-14.5)
[2016-10-22 05:10] LABS: A/G RATIO 0.7 (0.7-1.9); ALBUMIN 2.9 G/DL (3.5-5.0); ALKALINE PHOSPHATASE 88 U/L (45-117); CALCIUM, SERUM 8.9 MG/DL (8.5-10.4); CHLORIDE, SERUM 110 MMOL/L (96-112); CO2 (CARBON DIOXIDE) 19 MMOL/L (24-34); CREATININE 0.74 MG/DL (0.55-1.02); GFR AFRICAN AMERICAN 112 ML/MIN (>=60); GFR NON AFRICAN AMERICAN 96 ML/MIN (>=60); GLOBULIN 4.1 G/DL (2.5-4.1); POTASSIUM, SERUM 3.5 MMOL/L (3.5-5.3); SGOT(AST) 35 U/L (5-40); SGPT(ALT) 57 U/L (5-65); SODIUM, SERUM 143 MMOL/L (135-148); TOTAL BILIRUBIN 0.1 MG/DL (0-1.2)
[2016-10-22 05:18] LABS: BUN (BLOOD UREA NITROGEN) 13 MG/DL (6-23); GLUCOSE, SERUM 153 MG/DL (60-99); PHOSPHORUS, SERUM 3.6 MG/DL (2.5-4.5)
[2016-10-22 05:55] LABS: EOSINOPHILS 7 %; EOSINOPHILS ABSOLUTE (CALC) 0.54 10/3/uL (0.0-0.53); IMMATURE GRANS ABSOLUTE (CALC) 0.23 10/3/uL (0.0-0.11); LYMPHOCYTES 50 %; LYMPHOCYTES ABSOLUTE (CALC) 3.85 10/3/uL (0.67-4.30); METAMYELOCYTES 3 %; MONOCYTES 3 %; MONOCYTES ABSOLUTE (CALC) 0.23 10/3/uL (0.21-1.20); NEUTROPHILS ABSOLUTE (CALC) 2.85 10/3/uL (2.02-8.40); SEGMENTED NEUTROPHIL (0) 37 %; TOTAL NUCLEATED CELLS 100
[2016-10-22 05:56] LABS: ANISOCYTOSIS 1+ (5-10/OIF) (0-5/OIF); PLATELET ESTIMATE ADQ (ADEQUATE)
[2016-10-22] MEDS ORDERED: CLORTIMAZOLE T (09:38)
[2016-10-22] MEDS ORDERED: PERCOCET 10/3251 TAB PO (09:40)
== END 2016-10-22 11:10 | disposition home or self-care (01) | DRG 642 ==
LOC: ER 18:05 → IMCU 18:57 → MIC 10-15 02:18 → IMCU 10-18 17:55
PROVIDERS: Hospitalist; Internal Medicine; Internal Medicine Critical Care Medicine
PROC: 5A1945Z Respiratory Ventilation, 24-96 Consecutive Hours (ICD-10-PCS; principal; 2016-10-15)
PROC: 0BH17EZ Insertion of Endotracheal Airway into Trachea, Via Natural or Artificial Opening (ICD-10-PCS; 2016-10-15)
DX: D84.1 Defects in the complement system (principal); J96.01 Acute respiratory failure with hypoxia; E11.9 Type 2 diabetes mellitus without complications; E03.9 Hypothyroidism, unspecified; Z86.711 Personal history of pulmonary embolism; Z79.01 Long term (current) use of anticoagulants; Z82.3 Family history of stroke; Z82.49 Family history of ischemic heart disease and other diseases of the circulatory system; Z88.2 Allergy status to sulfonamides; Z88.8 Allergy status to other drugs, medicaments and biological substances; Z79.899 Other long term (current) drug therapy
CPT/HCPCS: 31720; 36600; 71010; 74000; 80048; 80053; 81001; 82805; 82962; 83735; 84100; 84132; 85025; 85610; 85730; 87040; 87070; 87077; 87186; 87205; 87493; 87493-59; 87641; 94002; 94003; 94640; 94660; 96374; 96376; 97161-GP; 97166-GO; 99285; A9270-GY; C1894; C9113; J0597; J1200; J1630; J2405; J2930; J3010